=== PATIENT | male | born 1980 | race Caucasian/White ===

== ENCOUNTER 2016-09-03 14:20 | Emergency (ER) | payer BC ==
[2016-09-03 14:26] VITALS: BP 123/80
[2016-09-03] MEDS ORDERED: OXYCODONE-ACETAMINOPHEN 5-325 MG TABLET PO ONE (14:55)
[2016-09-03] MEDS ORDERED: DIPH/PERTUSS(ACELL)/TETANUS VAC/PF 0.5 ML SYR (>=10YO) IM ONE (14:55)
[2016-09-03] MEDS ORDERED: LIDOCAINE 1% INJ-PF (10 MG/ML) 30 ML SDV INJ ONE (14:55)
--- NOTE | 2016-09-03 15:26 | ER Document Report ---
ED Wound - General Chief Complaint: Laceration Stated Complaint: THUMB LACERATION Time Seen by Provider: 09/03/16 14:43 TRAVEL OUTSIDE OF THE [place] IN LAST 30 DAYS: No - HPI Patient complains to provider of: Laceration Occurred: Just prior to arrival Onset/Duration: Sudden Quality of pain: Achy, Throbbing Context: Injury - right thumb cut with a razor blade Skin Temperature: Warm Skin Color: Normal Capillary refill: < 3 seconds Sensations intact: Yes Associated Symptoms: Bleeding - Related Data Allergies/Adverse Reactions: Penicillins Allergy (Verified 09/03/16 14:25) Past Medical History - Social History Smoking Status: Unknown if Ever Smoked Family History: Reviewed & Not Pertinent Patient has suicidal ideation: No Patient has homicidal ideation: No Renal/ Medical History: Denies: Hx Peritoneal Dialysis Review of Systems - Review of Systems Musculoskeletal: See HPI Skin: See HPI -: Yes All other systems reviewed and negative Physical Exam - Vital signs Vitals: Temp Pulse Resp BP Pulse Ox 98.4 F 60 16 123/80 98 09/03/16 14:25 09/03/16 14:25 09/03/16 14:25 09/03/16 14:25 09/03/16 14:25 - General General appearance: Appears well, Alert In distress: None - Cardiovascular Pulses: Normal: Radial Normal capillary refill: Yes - Extremities Shoulder: Normal, Nontender Arm: Normal, Nontender Elbow: Normal, Nontender Forearm: Normal, Nontender Wrist: Normal, Nontender Hand: Tender, Laceration, Nail injury, No evidence of FB. No: Ecchymosis, Swelling, Tendon deficit - Neurological Neuro grossly intact: Yes Cognition: Normal Orientation: AAOx4 Negin Coma Scale Eye Opening: Spontaneous [place] Coma Scale Verbal: Oriented Negin Coma Scale Motor: Obeys Commands Negin Coma Scale Total: 15 Motor strength normal: LUE, RUE Additional motor exam normals: Equal director of program management. No: Weakness Sensory: Altered light touch - Skin Skin irregularity: Laceration - 1.5cm on right thumb, radial side on the dorsal aspect. bleeding controlled. Course - Re-evaluation Re-evalutation: 09/03/16 16:02 Patient is a 35-year-old male who is hemodynamic stable, no acute distress and afebrile. Laceration bleeding controlled. Sutures at the bedside and splint applied. No evidence of bony involvement noted on x-ray. Patient sent home on prophylactic antibiotics, tetanus updated and patient to follow-up with primary care in 8-10 days to have the sutures removed. Patient is agreeable with plan. - Vital Signs Vital signs: Temp Pulse Resp BP Pulse Ox 98.4 F 60 16 123/80 98 09/03/16 14:25 09/03/16 14:25 09/03/16 14:25 09/03/16 14:25 09/03/16 14:25 - Diagnostic Test Radiology reviewed: Image reviewed, Reports reviewed Discharge - Discharge Clinical Impression: Laceration of finger Qualifiers: Encounter type: initial encounter Finger: thumb Damage to nail status: with damage Foreign body presence: without foreign body Laterality: right Qualified Code(s): S61.111A - Laceration without foreign body of right thumb with damage to nail, initial encounter Condition: Good Disposition: HOME, SELF-CARE Instructions: Tetanus Immunization Given ([facility]), Prophylactic Antibiotic ([facility]), Laceration Care ([facility]), Soap Cleansing ([facility]), Antibiotic Ointment Protection ([facility] ), Oral Narcotic Medication ([facility]) Additional Instructions: Please follow-up with your primary care provider in 8-10 days to have your stitches removed. Prescriptions: Clindamycin HCl 450 mg PO TID 5 Days Forms: Return to Work Referrals: WILLIAN AVINA [Primary Care Provider] - Follow up as needed
[2016-09-03] MEDS ORDERED: CLINDAMYCIN HCL 150 MG CAPSULE PO ONE (16:06)
[2016-09-03] MEDS ORDERED: HYDROCODONE/ACETAMINOPHEN 5-325 MG 6 TAB/DSPK PO PRN (16:07)
--- NOTE | 2016-09-03 16:12 | RADIOLOGY REPORT (SQ) ---
EXAM DESCRIPTION: FINGER RIGHT COMPLETED DATE/TIME: 09/03/2016 3:04 pm REASON FOR STUDY: right thumb, trauma COMPARISON: None. NUMBER OF VIEWS: Three views. TECHNIQUE: AP, lateral, and oblique images acquired of the right thumb LIMITATIONS: None. FINDINGS: MINERALIZATION: Normal. BONES: No acute fracture or dislocation. No worrisome bone lesions. SOFT TISSUES: No soft tissue swelling. No foreign body. OTHER: No other significant finding. IMPRESSION: NO RADIOGRAPHIC EVIDENCE OF ACUTE INJURY. COMMENT: SITE OF TRAUMA/COMPLAINT MARKED/STAMP COMPLETED: Yes TECHNICAL DOCUMENTATION: JOB ID: [id number] [employer]- All Rights Reserved
== END 2016-09-03 16:28 | disposition home or self-care (01) ==
LOC: ER 14:20
PROC: 0HQFXZZ Repair Right Hand Skin, External Approach (ICD-10-PCS; principal; 2016-09-03)
DX: S61.111A Laceration without foreign body of right thumb with damage to nail, initial encounter (principal); W26.0XXA Contact with knife, initial encounter; Z23 Encounter for immunization; Z88.0 Allergy status to penicillin
CPT/HCPCS: 99283; 90471; 73140; 90715; 12001; J3490

== ENCOUNTER 2016-09-11 09:54 | Emergency (ER) | payer BC ==
[2016-09-11 10:00] VITALS: BP 135/86
--- NOTE | 2016-09-11 10:21 | ER Document Report ---
ED Suture/Wound Recheck - General Chief Complaint: Suture Removal Stated Complaint: SUTURE REMOVAL Time Seen by Provider: 09/11/16 10:11 TRAVEL OUTSIDE OF THE [place] IN LAST 30 DAYS: No - HPI Patient complains to provider of: suture removal Treated in ED (days ago): 8 Previous ED treatment: Laceration repair Antibiotics given previously: Prescription Quality of pain: No pain Severity: None Pain Level: Denies Context: Work related - cut with a razor blade Exacerbated by: Denies Relieved by: Denies - Related Data Allergies/Adverse Reactions: Penicillins Allergy (Verified 09/11/16 09:58) Past Medical History - Social History Smoking Status: Never Smoker Family History: Reviewed & Not Pertinent Patient has suicidal ideation: No Patient has homicidal ideation: No Renal/ Medical History: Denies: Hx Peritoneal Dialysis Physical Exam - Vital signs Vitals: Temp Pulse Resp BP Pulse Ox 98.0 F 55 L 18 135/86 H 98 09/11/16 09:59 09/11/16 09:59 09/11/16 09:59 09/11/16 09:59 09/11/16 09:59 - General General appearance: Appears well, Alert In distress: None - Extremities General upper extremity: Normal inspection, Nontender, Normal color, Normal ROM , Normal strength, Normal temperature - Neurological Neuro grossly intact: Yes Cognition: Normal Orientation: AAOx4 [place] Coma Scale Eye Opening: Spontaneous Negin Coma Scale Verbal: Oriented Negin Coma Scale Motor: Obeys Commands [place] Coma Scale Total: 15 - Skin Skin irregularity: Laceration - of the right thumb has healed well without dehiscence or infection Course - Re-evaluation Re-evalutation: 09/11/16 20:38 Patient is a 35-year-old male who presents for suture removal. No evidence of wound infection, dehiscence. Nailbed has healed well. Patient instructed to continue using his splint until new nail grows out. Patient to follow-up with primary care as needed - Vital Signs Vital signs: Temp Pulse Resp BP Pulse Ox 98.0 F 55 L 18 135/86 H 98 09/11/16 09:59 09/11/16 09:59 09/11/16 09:59 09/11/16 09:59 09/11/16 09:59 Discharge - Discharge Clinical Impression: Visit for suture removal Condition: Good Disposition: HOME, SELF-CARE Instructions: Suture Removal Referrals: WILLIAN AVINA [Primary Care Provider] - Follow up as needed
== END 2016-09-11 10:40 | disposition home or self-care (01) ==
LOC: ER 09:54
DX: S61.011D Laceration without foreign body of right thumb without damage to nail, subsequent encounter (principal); W26.8XXD Contact with other sharp object(s), not elsewhere classified, subsequent encounter